=== PATIENT | female | born 1945 | race Hispanic/Latino ===

== ENCOUNTER → 2022-08-24 | Outpatient (CLI) | payer OTHER ==
[~2022-08-24] MED LIST: GLIP10TA9 PO; LINA5TAB PO; LISI20TA24 PO; MECL-129 PO; METF-446 PO; SULF1TAB42 PO
== END | disposition home or self-care (01) ==
LOC: SHCH 13:40
PROVIDERS: ATTEND Internal Medicine Cardiovascular Disease
DX: I44.2 Atrioventricular block, complete (principal); Z95.0 Presence of cardiac pacemaker
CPT/HCPCS: 93306